=== PATIENT | male | born 1970 | race Caucasian/White ===

== ENCOUNTER 2021-06-10 13:42 | Emergency (ER) | payer BC ==
[2021-06-10 13:55] VITALS: BP 154/98; PULSE 115; RESP 18; TEMP 98.2
--- NOTE | 2021-06-10 15:08 | ED ---
Recheck HPI - General Chief Complaint: Recheck/Abnormal Lab/Rx Stated Complaint: Covid Test Time Seen by Provider: 06/10/21 15:08 Source: patient, family Mode of arrival: ambulatory - History of Present Illness Initial Comments: Patient is a 50-year-old male presenting to the emergency department requesting a Covid test for reentry back to [place]. He has no symptoms, no complaints. No recent fevers or chills, no coughing. He has no further complaints today. - Related Data Allergies Allergy/AdvReac Type Severity Reaction Status Date / Time No Known Allergies Allergy Verified 06/10/21 13:52 Review of Systems ROS Statement: Those systems with pertinent positive or pertinent negative responses have been documented in the HPI. ROS Other: All systems not noted in ROS Statement are negative. Past Medical History Past Medical History: No Reported History History of Any Multi-Drug Resistant Organisms: None Reported Past Surgical History: No Surgical Hx Reported Past Psychological History: No Psychological Hx Reported Smoking Status: Never smoker Past Alcohol Use History: None Reported Past Drug Use History: None Reported General Exam - General Exam Comments Initial Comments: GENERAL: Patient is well-developed and well-nourished. Patient is nontoxic and in no acute distress. HEAD: Atraumatic, normocephalic. EYES: Pupils equal round and reactive to light, extraocular movements intact, sclera anicteric, conjunctiva are normal. Eyelids were unremarkable. ENT: Moist mucous membranes. NECK: Normal range of motion, supple without lymphadenopathy or JVD. LUNGS: Unlabored respirations. Breath sounds clear to auscultation bilaterally and equal. No wheezes rales or rhonchi. HEART: Regular rate and rhythm without murmurs, rubs or gallops. ABDOMEN: Soft, nontender, normoactive bowel sounds. : Deferred MUSCULOSKELETAL: Normal extremities with adequate strength and normal range of motion, no pitting or edema. No clubbing or cyanosis. NEUROLOGICAL: Patient is alert and oriented x 3. SKIN: Warm, Dry, normal turgor, no rashes or lesions noted. Course Vital Signs 06/10/21 13:52 Temperature 98.2 F Pulse Rate 115 H Respiratory 18 Rate Blood Pressure 154/98 O2 Sat by Pulse 94 L Oximetry Medical Decision Making - Medical Decision Making Patient is a 50-year-old male here requesting a Covid test for reentry back in the [place]. He has no symptoms, exam is normal. His test is negative, he stable for discharge. - Lab Data Lab Results 06/10/21 Range/Units 13:56 Coronavirus (PCR) Not Detected (Not Detectd) Disposition Clinical Impression: Lab test negative for COVID-19 virus Disposition: HOME SELF-CARE Condition: Stable Instructions (If sedation given, give patient instructions): Normal Exam (ED) Additional Instructions: Please return to the Emergency Department if symptoms worsen or any other concerns. Covid test is negative. Is patient prescribed a controlled substance at d/c from ED?: No Referrals: None,Stated [Primary Care Provider] - 1-2 days Time of Disposition: 15:08
== END 2021-06-10 15:30 | disposition home or self-care (01) ==
LOC: EC 13:42
DX: Z11.52 Encounter for screening for COVID-19 (principal); Z20.822 Contact with and (suspected) exposure to COVID-19
CPT/HCPCS: 87635; 99282